=== PATIENT | female | born 1945 | race Caucasian/White ===

== ENCOUNTER → 2017-02-05 | Outpatient (CLI) | payer MEDICARE ==
[2017-02-05 08:42] LABS: BASOPHILS % (AUTO) 2 % (0-2); EOSINOPHILS # (AUTO) 0.2 10^3uL; EOSINOPHILS % (AUTO) 3 % (0-4); LYMPHOCYTES # (AUTO) 1.4 X10^3; MEAN CORPUSCULAR HEMOGLOBIN 31.2 PG (26.0-34.0); MEAN CORPUSCULAR HGB CONC 33.9 g/dL (31.0-37.0); MEAN CORPUSCULAR VOLUME 92 FL (80-100); MEAN PLATELET VOLUME 9.2 FL (6.0-9.5); MONOCYTES # (AUTO) 0.5 X10^3; MONOCYTES % (AUTO) 10 % (3-11); NEUTROPHILS # (AUTO) 2.6 X10^3; NEUTROPHILS % (AUTO) 56 % (51-67); PLATELET COUNT 336 10^3uL (150-450); WHITE BLOOD COUNT 4.66 10^3uL (4.0-11.0)
[2017-02-05 08:45] LABS: BILIRUBIN,URINE Negative (Negative); CLARITY,URINE Clear; COLOR,URINE Yellow; GLUCOSE, URINE (UA) Negative (Negative); LEUKOCYTE ESTERASE ,URINE Negative (Negative); UROBILINOGEN,URINE 0.2 mg/dL (0.2-1.0)
[2017-02-05 09:28] LABS: ALBUMIN 4.2 g/dL (3.4-5.0); ANION GAP 14.5 MEQ/L (3-15); CALCULATED IONIZED CALCIUM 4.4 mg/dL (3.8-4.6); TOTAL PROTEIN 6.9 g/dL (6.4-8.5)
== END ==
LOC: LAB 08:27
PROVIDERS: ATTEND Family Medicine
DX: J20.2 Acute bronchitis due to streptococcus (principal); I49.8 Other specified cardiac arrhythmias; R79.89 Other specified abnormal findings of blood chemistry; E78.2 Mixed hyperlipidemia; D50.8 Other iron deficiency anemias; N39.0 Urinary tract infection, site not specified; E03.4 Atrophy of thyroid (acquired); M81.0 Age-related osteoporosis without current pathological fracture
CPT/HCPCS: 36415; 71020; 80053; 80061; 81003; 82306; 82728; 84436; 84443; 85025; 93005

== ENCOUNTER 2017-03-11 07:40 | Day surgery (SDC) | payer MEDICARE ==
[~2017-03-11] VITALS: Ht 170.2 cm; Wt 63.0 kg
[~2017-03-11 07:40] MED LIST: APIX2.5T2 PO; CELE200C PO; LACTATED RINGERS 1,000 ML IV SCH; LEVO0.5P2 PO; LEVO50TA PO; LVT.05T PO; SERT100T PO; SODIUM CHLORIDE FLUSH 3 ML SYR IV PRN; TRAZ150T72 PO
--- OUTSIDE RECORDS SUMMARY | 2017-03-11 07:46 | XMS REPORT | Continuity of Care Document ---
Author Author [facility] Organization [facility] Address Unknown Phone Unavailable Allergies Active Description Code Type Severity Reaction Onset Reported/Identified Relationship to Patient Clinical Status Yes meloxicam [id number] Drug Allergy Unknown Anaphylaxis 12/01/2012 Yes morphine [id number] Drug Allergy Unknown Rash 12/01/2012 Yes nabumetone [id number] Drug Allergy Unknown Hives 12/01/2012 Yes Mobic 33052 Drug severe Anaphylaxis 12/25/2013 Yes Lortab 7006 Drug mild to moderate Unknown 12/25/2013 Yes morphine 1545 Ingredient mild to moderate Unknown 12/25/2013 Yes Relafen 6740 Drug mild to moderate Unknown 12/25/2013 Medications Problems Date Dx Coded Attending Type Code Diagnosis Diagnosed By 12/01/2012 Ot 724.02 12/01/2012 Ot 724.2 12/01/2012 Ot 726.5 02/09/2013 Ot 724.4 08/13/2013 PARAG RODRIGUEZ MD Ot 780.2 08/13/2013 PARAG RODRIGUEZ MD P Ot 847.0 08/13/2013 PARAG RODRIGUEZ MD P Ot 891.0 08/13/2013 PARAG RODRIGUEZ MD Ot 924.8 08/13/2013 PARAG RODRIGUEZ MD P Ot E849.8 08/13/2013 PARAG RODRIGUEZ MD P Ot E888.8 10/23/2013 Dewayne Lugo Ot 724.00 09/18/2014 JASON PAREDES, LAZARO Fowler Ot 724.6 11/08/2014 Ot 453.40 11/08/2014 Ot 715.95 11/08/2014 Ot 727.51 11/08/2014 Ot 786.2 11/08/2014 Ot 244.9 11/08/2014 Ot 272.0 11/08/2014 Ot 274.9 11/08/2014 Ot 285.9 11/08/2014 Ot 599.0 11/08/2014 Ot 710.2 11/08/2014 Ot 719.40 11/08/2014 Ot 724.5 11/08/2014 Ot 733.00 11/08/2014 Ot 790.6 11/08/2014 Ot 355.8 11/08/2014 Ot 518.89 11/08/2014 Ot 715.89 11/08/2014 Ot 721.3 11/08/2014 Ot 724.4 11/08/2014 Ot 518.89 11/08/2014 Ot 724.4 11/08/2014 Ot 719.45 11/08/2014 Ot 720.2 11/08/2014 Ot V76.12 11/08/2014 Ot 285.9 11/08/2014 Ot 427.9 11/08/2014 Ot 599.0 11/08/2014 Ot 790.6 11/08/2014 Ot V72.83 11/08/2014 JASON PAREDES, LAZARO Fowler Ot 729.5 11/08/2014 Dewayne Lugo Ot 724.02 11/08/2014 Dewayne Lugo Ot 724.00 11/08/2014 JASON PAREDES, LAZARO Fowler Ot 726.5 11/08/2014 JASON PAREDES, LAZARO Fowler Ot 244.9 11/08/2014 JASON PAREDES, LAZARO Fowler Ot 272.0 11/08/2014 JASON PAREDES, LAZARO Fowler Ot 733.00 11/08/2014 JASON PAREDES, LAZARO Fowler Ot 786.2 11/08/2014 JASON PAREDES, LAZARO Fowler Ot 793.19 11/08/2014 Rakel, Jey Ot 719.46 11/08/2014 Rakel, Jey Ot 996.77 11/08/2014 Rakel, Jey Ot E849.9 11/08/2014 Rakel, Jey Ot E878.1 11/08/2014 Ot 250.00 11/08/2014 Ot 285.9 11/08/2014 Ot 427.9 11/08/2014 Ot 459.0 11/08/2014 Ot 599.0 11/08/2014 Ot 786.2 11/08/2014 Ot 790.6 11/08/2014 CONSTANCE ASHLEY DO Ot 720.2 11/08/2014 CONSTANCE ASHLEY DO Ot V45.89 11/28/2014 [facility] DO, CONSTANCE W Ot 720.2 11/28/2014 [facility] DO, CONSTANCE W Ot V45.89 12/03/2014 [facility] DO, CONSTANCE Flynn Ot 720.2 12/03/2014 [facility] DO, CONSTANCE W Ot V45.89 12/21/2014 JASON PAREDES, LAZARO Fowler Ot 733.90 12/21/2014 JASON PAREDES, LAZARO Fowler Ot V76.12 01/02/2015 JASON PAREDES, LAZARO Fowler Ot 733.90 01/02/2015 JASON PAREDES, LAZARO R Ot V76.12 03/06/2015 [facility], CONSTANCE W Ot 272.0 03/06/2015 [facility], CONSTANCE W Ot 401.9 03/06/2015 [facility], CONSTANCE Flynn Ot 720.2 03/06/2015 [facility], CONSTANCE W Ot 724.02 03/06/2015 [facility], CONSTANCE W Ot 733.00 03/14/2015 [facility], CONSTANCE Flynn Ot 272.0 03/14/2015 [facility], CONSTANCE Flynn Ot 401.9 03/14/2015 [facility], CONSTANCE Flynn Ot 720.2 03/14/2015 [facility], CONSTANCE W Ot 724.02 03/14/2015 [facility], CONSTANCE W Ot 733.00 03/27/2015 Dewayne Lugo Ot 724.00 03/27/2015 JASON PAREDES, LAZARO Fowler Ot 726.5 03/27/2015 JASON PAREDES, LAZARO Fowler Ot 244.9 03/27/2015 JASON PAREDES, LAZARO Fowler Ot 272.0 03/27/2015 JASON PAREDES, LAZARO Fowler Ot 733.00 03/27/2015 JASON PAREDES, LAZARO Fowler Ot 786.2 03/27/2015 JASON PAREDES, LAZARO Fowler Ot 793.19 03/27/2015 Rakel, Jey Ot 719.46 03/27/2015 Rakel, Jey Ot 996.77 03/27/2015 Rakel, Jey Ot E849.9 03/27/2015 Rakel, Jey Ot E878.1 03/27/2015 Ot 250.00 03/27/2015 Ot 285.9 03/27/2015 Ot 427.9 03/27/2015 Ot 459.0 03/27/2015 Ot 599.0 03/27/2015 Ot 786.2 03/27/2015 Ot 790.6 03/27/2015 [facility] DO, CONSTANCE Flynn Ot 720.2 03/27/2015 [facility], CONSTANCE Flynn Ot V45.89 03/27/2015 [facility], CONSTANCE Flynn Ot 272.0 03/27/2015 [facility], CONSTANCE Flynn Ot 401.9 03/27/2015 [facility], CONSTANCE Flynn Ot 720.2 03/27/2015 [facility], CONSTANCE Flynn Ot 724.02 03/27/2015 [facility], CONSTANCE Flynn Ot 733.00 03/27/2015 JASON PAREDES, LAZARO R Ot 733.90 03/27/2015 JASON PAREDES, LAZARO R Ot V76.12 04/18/2015 JASON PAREDES, LAZARO R Ot 285.9 04/18/2015 JASON PAREDES, LAZARO R Ot 427.9 04/18/2015 JASON PAREDES, LAZARO R Ot 788.69 04/18/2015 JASON PAREDES, LAZARO R Ot 790.6 04/26/2015 JASON PAREDES, LAZARO R Ot 285.9 04/26/2015 JASON PAREDES, LAZARO R Ot 427.9 04/26/2015 JASON PAREDES, LAZARO R Ot 788.69 04/26/2015 JASON PAREDES, LAZARO R Ot 790.6 07/02/2015 JASON PAREDES, LAZARO R Ot 453.40 07/02/2015 JASON PAREDES, LAZARO R Ot 727.51 07/12/2015 JASON PAERDES, LAZARO R Ot 453.40 07/12/2015 JASON PAREDES, LAZARO R Ot 727.51 07/18/2015 JASON PAREDES, LAZARO R Ot 453.40 07/18/2015 JASON PAREDES, LAZARO R Ot 727.51 07/24/2015 Ot 285.9 07/24/2015 Ot 427.9 07/24/2015 Ot 599.0 07/24/2015 Ot 790.6 08/08/2015 Ot 285.9 08/08/2015 Ot 427.9 08/08/2015 Ot 599.0 08/08/2015 Ot 790.6 08/14/2015 Ot 285.9 08/14/2015 Ot 427.9 08/14/2015 Ot 599.0 08/14/2015 Ot 790.6 10/04/2015 JASON PAREDES, LAZARO Fowler Ot I82.402 10/22/2015 JASON PAREDES, LAZARO Fowler Ot I82.402 10/31/2015 JAOSN PAREDES, LAZARO Fowler Ot I82.402 11/15/2015 Parish, Dewayne Fowler Ot M46.1 11/21/2015 Dewayne Lugo Ot M46.1 12/01/2015 JASON PAREDES, LAZARO Fowler Ot I82.402 12/02/2015 Dewayne Lugo Ot M54.5 12/04/2015 Parish, Dewayne Fowler Ot M54.5 12/20/2015 JASON PAREDES, LAZARO Fowler Ot I82.432 12/20/2015 JASON PAREDES, LAZARO Fowler Ot M19.042 12/20/2015 JASON PAREDES, LAZARO Fowler Ot M19.072 12/30/2015 JASON PAREDES, LAZARO Fowler Ot I82.432 12/30/2015 JASON PAREDES, LAZARO Fowler Ot M19.042 12/30/2015 JASON PAREDES, LAZARO Fowler Ot M19.072 01/03/2016 Ot 285.9 01/03/2016 Ot 427.9 01/03/2016 Ot 599.0 01/03/2016 Ot 790.6 01/08/2016 JASON PAREDES, LAZARO Fowler Ot I82.432 01/08/2016 JASON PAREDES, LAZARO Fowler Ot M19.042 01/08/2016 JASON PAREDES, LAZARO Fowler Ot M19.072 01/10/2016 Ot M25.562 01/21/2016 Dewayne Lugo Ot M54.5 01/21/2016 Dewayne Lugo Ot M46.1 01/21/2016 JASON PAREDES, LAZARO Fowler Ot I82.402 01/21/2016 JASON PAREDES, LAZARO Fowler Ot I82.432 01/21/2016 JASON PAREDES, LAZARO Fowler Ot M19.042 01/21/2016 JASON PAREDES, LAZARO Fowler Ot M19.072 01/21/2016 Ot M25.562 01/21/2016 JASON APREDES, LAZARO Fowler Ot D50.8 01/21/2016 JASON PAREDES, LAZARO Fowler Ot E03.4 01/21/2016 Ot M25.562 02/05/2016 DebbieAl N81.11 Cystocele, Midline 02/14/2016 JASON PAREDES, LAZARO Fowler Ot D50.8 02/14/2016 JASON PAREDES, LAZARO Fowler Ot E03.4 03/04/2016 JASON PAREDES, LAZARO Fowler Ot D50.8 03/04/2016 JASON PAREDES, LAZARO Fowler Ot E78.0 03/04/2016 JASON PAREDES, LAZARO Fowler Ot R79.89 03/06/2016 JASON PAREDES, LAZARO Fowler Ot D50.8 03/06/2016 JASON PAREDES, LAZARO Fowler Ot E03.4 03/06/2016 JASON PAREDES, LAZARO Fowler Ot E78.0 03/06/2016 JASON PAREDES, LAZARO Fowler Ot M81.0 03/06/2016 JASON PAREDES, LAZARO Fowler Ot N39.0 03/06/2016 JASON PAREDES, LAZARO Fowler Ot R79.89 03/10/2016 JASON PAREDES, LAZARO Fowler Ot D50.8 03/10/2016 JASON PAREDES, LAZARO Fowler Ot E03.4 03/11/2016 JASON PAREDES, LAZARO Fowler Ot Z12.31 03/11/2016 JASON PAREDES, LAZARO Fowler Ot Z12.31 03/18/2016 JASON PAREDES, LAZARO Fowler Ot Z12.31 ENCNTR SCREEN MAMMOGRAM FOR MALIGNANT NE 03/19/2016 JASON PAREDES, LAZARO Fowler Ot D50.8 OTHER IRON DEFICIENCY ANEMIAS 03/19/2016 JASON PAREDES, LAZARO Fowler Ot E03.4 ATROPHY OF THYROID (ACQUIRED) 03/19/2016 JASON PAREDES, LAZARO Fowler Ot E78.0 PURE HYPERCHOLESTEROLEMIA 03/19/2016 JASON PAREDES, LAZARO Fowler Ot M81.0 AGE-RELATED OSTEOPOROSIS W/O CURRENT PAT 03/19/2016 LARZALAZARO NAYAK MD, Ot N39.0 URINARY TRACT INFECTION, SITE NOT SPECIF 03/19/2016 LAZARO GOMEZ MD, Ot R79.89 OTHER SPECIFIED ABNORMAL FINDINGS OF BLO 03/20/2016 LAZARO GOMEZ MD, Ot 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 03/20/2016 LAZARO GOMEZ MD, Ot Z12.31 ENCNTR SCREEN MAMMOGRAM FOR MALIGNANT NE 03/20/2016 LAZARO GOMEZ MD, Ot 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 03/24/2016 LAZARO GOMEZ MD, Ot Z12.31 ENCNTR SCREEN MAMMOGRAM FOR MALIGNANT NE 03/24/2016 LAZARO GOMEZ MD, Ot D50.8 OTHER IRON DEFICIENCY ANEMIAS 03/24/2016 LAZARO GOMEZ MD, Ot E03.4 ATROPHY OF THYROID (ACQUIRED) 03/24/2016 LAZARO GOMEZ MD, Ot E78.0 PURE HYPERCHOLESTEROLEMIA 03/24/2016 LAZARO GOMEZ MD, Ot M81.0 AGE-RELATED OSTEOPOROSIS W/O CURRENT PAT 03/24/2016 LAZARO GOMEZ MD, Ot N39.0 URINARY TRACT INFECTION, SITE NOT SPECIF 03/24/2016 LAZARO GOMEZ MD, Ot R79.89 OTHER SPECIFIED ABNORMAL FINDINGS OF BLO 03/24/2016 LAZARO GOMEZ MD, Ot 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 04/02/2016 LAZARO GOMEZ MD, Ot 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 04/03/2016 LAZARO GOEMZ MD, Ot Z12.31 ENCNTR SCREEN MAMMOGRAM FOR MALIGNANT NE 04/08/2016 LAZARO GOMEZ MD, Ot M54.16 RADICULOPATHY, LUMBAR REGION 04/09/2016 LAZARO GOMEZ MD, Ot 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 04/16/2016 LAZARO GOMEZ MD, Ot 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 04/28/2016 LAZARO GOMEZ MD, Ot M54.16 RADICULOPATHY, LUMBAR REGION 04/30/2016 LAZARO GOMEZ MD, Ot M54.16 RADICULOPATHY, LUMBAR REGION 05/05/2016 LAZARO GOEMZ MD, Ot M53.3 SACROCOCCYGEAL DISORDERS, NOT ELSEWHERE 05/12/2016 LAZARO GOMEZ MD Ot 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 05/21/2016 LAZARO GOMEZ MD, Ot M53.3 SACROCOCCYGEAL DISORDERS, NOT ELSEWHERE 05/27/2016 LAZARO GOMEZ MD, Ot M53.3 SACROCOCCYGEAL DISORDERS, NOT ELSEWHERE 05/28/2016 LAZARO GOMEZ MD, Ot M53.3 SACROCOCCYGEAL DISORDERS, NOT ELSEWHERE 07/14/2016 LAZARO GOMEZ MD Ot R79.89 OTHER SPECIFIED ABNORMAL FINDINGS OF BLO 07/14/2016 LAZARO GOMEZ MD Ot R79.89 OTHER SPECIFIED ABNORMAL FINDINGS OF BLO 07/17/2016 LAZARO GOMEZ MD Ot D50.8 OTHER IRON DEFICIENCY ANEMIAS 07/17/2016 LAZARO OGMEZ MD Ot I49.8 OTHER SPECIFIED CARDIAC ARRHYTHMIAS 07/17/2016 LAZARO GOMEZ MD Ot N39.0 URINARY TRACT INFECTION, SITE NOT SPECIF 07/17/2016 LAZARO GOMEZ MD Ot R06.00 DYSPNEA, UNSPECIFIED 07/17/2016 LAZARO GOMEZ MD Ot R79.89 OTHER SPECIFIED ABNORMAL FINDINGS OF BLO 07/20/2016 LAZARO GOMEZ MD Ot D50.8 OTHER IRON DEFICIENCY ANEMIAS 07/20/2016 LAZARO GOMEZ MD Ot I49.8 OTHER SPECIFIED CARDIAC ARRHYTHMIAS 07/20/2016 LAZARO GOMEZ MD Ot N39.0 URINARY TRACT INFECTION, SITE NOT SPECIF 07/20/2016 LAZARO GOMEZ MD Ot R06.00 DYSPNEA, UNSPECIFIED 07/20/2016 LAZARO GOMEZ MD Ot R79.89 OTHER SPECIFIED ABNORMAL FINDINGS OF BLO 07/28/2016 LAZARO GOMEZ MD Ot D50.8 OTHER IRON DEFICIENCY ANEMIAS 07/28/2016 LAZARO GOMEZ MD Ot I49.8 OTHER SPECIFIED CARDIAC ARRHYTHMIAS 07/28/2016 LAZARO GOMEZ MD Ot N39.0 URINARY TRACT INFECTION, SITE NOT SPECIF 07/28/2016 LAZARO GOMEZ MD Ot R06.00 DYSPNEA, UNSPECIFIED 07/28/2016 LAZARO GOMEZ MD Ot R79.89 OTHER SPECIFIED ABNORMAL FINDINGS OF BLO 08/11/2016 LAZARO GOMEZ MD Ot I82.432 ACUTE EMBOLISM AND THROMBOSIS OF LEFT PO 08/11/2016 LAZARO GOMEZ MD Ot I82.432 ACUTE EMBOLISM AND THROMBOSIS OF LEFT PO 08/13/2016 LAZARO GOMEZ MD Ot I82.432 ACUTE EMBOLISM AND THROMBOSIS OF LEFT PO 08/14/2016 LAZARO GOMEZ MD Ot D50.8 OTHER IRON DEFICIENCY ANEMIAS 08/14/2016 LAZARO GOMEZ MD Ot I49.8 OTHER SPECIFIED CARDIAC ARRHYTHMIAS 08/14/2016 LAZARO GOMEZ MD Ot N39.0 URINARY TRACT INFECTION, SITE NOT SPECIF 08/14/2016 LAZARO GOMEZ MD Ot R06.00 DYSPNEA, UNSPECIFIED 08/14/2016 LAZARO GOMEZ MD Ot R79.89 OTHER SPECIFIED ABNORMAL FINDINGS OF BLO 08/17/2016 LAZARO GOMEZ MD Ot I82.432 ACUTE EMBOLISM AND THROMBOSIS OF LEFT PO 08/25/2016 LAZARO GOMEZ MD Ot D50.8 OTHER IRON DEFICIENCY ANEMIAS 08/25/2016 LAZARO GOMEZ MD Ot I49.8 OTHER SPECIFIED CARDIAC ARRHYTHMIAS 08/25/2016 LAZARO GOMEZ MD, Ot N39.0 URINARY TRACT INFECTION, SITE NOT SPECIF 08/25/2016 LAZARO GOMEZ MD Ot R06.00 DYSPNEA, UNSPECIFIED 08/25/2016 LAZARO GOMEZ MD Ot R79.89 OTHER SPECIFIED ABNORMAL FINDINGS OF BLO 09/04/2016 LAZARO GOMEZ MD Ot I82.432 ACUTE EMBOLISM AND THROMBOSIS OF LEFT PO 09/10/2016 LAZARO GOMEZ MD Ot I82.432 ACUTE EMBOLISM AND THROMBOSIS OF LEFT PO 09/16/2016 LAZARO GOMEZ MD Ot I82.432 ACUTE EMBOLISM AND THROMBOSIS OF LEFT PO 09/23/2016 LAZARO GOMEZ MD Ot E03.4 ATROPHY OF THYROID (ACQUIRED) 09/23/2016 LAZARO GOMEZ MD Ot E03.4 ATROPHY OF THYROID (ACQUIRED) 09/23/2016 LAZARO GOMEZ MD Ot E03.4 ATROPHY OF THYROID (ACQUIRED) 09/24/2016 LAZARO GOMEZ MD Ot E03.4 ATROPHY OF THYROID (ACQUIRED) 09/25/2016 LAZARO GOMEZ MD Ot E03.4 ATROPHY OF THYROID (ACQUIRED) 10/13/2016 LAZARO GOMEZ MD Ot E03.4 ATROPHY OF THYROID (ACQUIRED) 10/28/2016 LAZARO GOMEZ MD Ot E03.4 ATROPHY OF THYROID (ACQUIRED) 10/28/2016 LAZARO GOMEZ MD Ot E03.4 ATROPHY OF THYROID (ACQUIRED) 10/29/2016 LAZARO GOMEZ MD Ot E03.4 ATROPHY OF THYROID (ACQUIRED) 10/29/2016 LAZARO GOMEZ MD Ot E03.4 ATROPHY OF THYROID (ACQUIRED) 10/29/2016 LAZARO GOMEZ MD Ot I82.432 ACUTE EMBOLISM AND THROMBOSIS OF LEFT PO 10/29/2016 LAZARO GOMEZ MD Ot M19.042 PRIMARY OSTEOARTHRITIS, LEFT HAND 10/29/2016 LAZARO GOMEZ MD Ot M19.072 PRIMARY OSTEOARTHRITIS, LEFT ANKLE AND F 10/29/2016 Ot M25.562 PAIN IN LEFT KNEE 11/03/2016 LAZARO GOMEZ MD Ot E03.4 ATROPHY OF THYROID (ACQUIRED) 11/20/2016 LAZARO GOMEZ MD Ot E03.4 ATROPHY OF THYROID (ACQUIRED) 02/05/2017 LAZARO GOMEZ MD Ot E78.2 MIXED HYPERLIPIDEMIA 02/05/2017 LAZARO GOMEZ MD Ot R79.89 OTHER SPECIFIED ABNORMAL FINDINGS OF BLO 02/05/2017 LAZARO GOMEZ MD Ot E78.2 MIXED HYPERLIPIDEMIA 02/05/2017 LAZARO GOMEZ MD Ot R79.89 OTHER SPECIFIED ABNORMAL FINDINGS OF BLO 02/05/2017 LAZARO GOMEZ MD Ot E78.2 MIXED HYPERLIPIDEMIA 02/05/2017 LAZARO GOMEZ MD Ot R79.89 OTHER SPECIFIED ABNORMAL FINDINGS OF BLO 02/06/2017 LAZARO GOMEZ MD Ot E78.2 MIXED HYPERLIPIDEMIA 02/06/2017 LAZARO GOMEZ MD Ot R79.89 OTHER SPECIFIED ABNORMAL FINDINGS OF BLO 02/10/2017 LAZARO GOMEZ MD Ot D50.8 OTHER IRON DEFICIENCY ANEMIAS 02/10/2017 LAZARO GOMEZ MD Ot E03.4 ATROPHY OF THYROID (ACQUIRED) 02/10/2017 LAZARO GOMEZ MD, Ot E78.2 MIXED HYPERLIPIDEMIA 02/10/2017 LAZARO GOMEZ MD Ot I49.8 OTHER SPECIFIED CARDIAC ARRHYTHMIAS 02/10/2017 LAZARO GOMEZ MD Ot J20.2 ACUTE BRONCHITIS DUE TO STREPTOCOCCUS 02/10/2017 LAZARO GOMEZ MD, Ot M81.0 AGE-RELATED OSTEOPOROSIS W/O CURRENT PAT 02/10/2017 LAZARO GOMEZ MD, Ot N39.0 URINARY TRACT INFECTION, SITE NOT SPECIF 02/10/2017 LAZARO GOMEZ MD, Ot R79.89 OTHER SPECIFIED ABNORMAL FINDINGS OF BLO 02/12/2017 LAZARO GOMEZ MD, Ot D50.8 OTHER IRON DEFICIENCY ANEMIAS 02/12/2017 LAZARO GOMEZ MD Ot E03.4 ATROPHY OF THYROID (ACQUIRED) 02/12/2017 LAZARO GOMEZ MD, Ot E78.2 MIXED HYPERLIPIDEMIA 02/12/2017 LAZARO GOMEZ MD, Ot I49.8 OTHER SPECIFIED CARDIAC ARRHYTHMIAS 02/12/2017 LAZARO GOMEZ MD, Ot J20.2 ACUTE BRONCHITIS DUE TO STREPTOCOCCUS 02/12/2017 LAZARO GOMEZ MD, Ot M81.0 AGE-RELATED OSTEOPOROSIS W/O CURRENT PAT 02/12/2017 LAZARO GOMEZ MD, Ot N39.0 URINARY TRACT INFECTION, SITE NOT SPECIF 02/12/2017 LAZARO GOMEZ MD Ot R79.89 OTHER SPECIFIED ABNORMAL FINDINGS OF BLO 03/02/2017 LAZARO GOMEZ MD, Ot D50.8 OTHER IRON DEFICIENCY ANEMIAS 03/02/2017 LAZARO GOMEZ MD Ot E03.4 ATROPHY OF THYROID (ACQUIRED) 03/02/2017 LAZARO GOMEZ MD, Ot E78.2 MIXED HYPERLIPIDEMIA 03/02/2017 LAZARO GOMEZ MD Ot I49.8 OTHER SPECIFIED CARDIAC ARRHYTHMIAS 03/02/2017 LAZARO GOMEZ MD Ot J20.2 ACUTE BRONCHITIS DUE TO STREPTOCOCCUS 03/02/2017 LAZARO GOMEZ MD Ot M81.0 AGE-RELATED OSTEOPOROSIS W/O CURRENT PAT 03/02/2017 LAZARO GOMEZ MD, Ot N39.0 URINARY TRACT INFECTION, SITE NOT SPECIF 03/02/2017 LAZARO GOMEZ MD, Ot R79.89 OTHER SPECIFIED ABNORMAL FINDINGS OF BLO 03/03/2017 LAZARO GOMEZ MD, Ot D50.8 OTHER IRON DEFICIENCY ANEMIAS 03/03/2017 LAZARO GOMEZ MD, Ot E03.4 ATROPHY OF THYROID (ACQUIRED) 03/03/2017 LAZARO GOMEZ MD, Ot E78.2 MIXED HYPERLIPIDEMIA 03/03/2017 LAZARO GOMEZ MD, Ot I49.8 OTHER SPECIFIED CARDIAC ARRHYTHMIAS 03/03/2017 LAZARO GOMEZ MD, Ot J20.2 ACUTE BRONCHITIS DUE TO STREPTOCOCCUS 03/03/2017 LAZARO GOMEZ MD, Ot M81.0 AGE-RELATED OSTEOPOROSIS W/O CURRENT PAT 03/03/2017 LAZARO GOMEZ MD, Ot N39.0 URINARY TRACT INFECTION, SITE NOT SPECIF 03/03/2017 LAZARO GOMEZ MD, Ot R79.89 OTHER SPECIFIED ABNORMAL FINDINGS OF BLO Procedures Code Description Performed By Performed On [id number] 03/11/2016 Results Test Result Range Complete blood count (CBC) with automated white blood cell (WBC) differential - 07/14/16 14:27 Blood automated leukocyte count 5.99 4.0 -11.0 Erythrocytes 4.09 4.00-5.00 12.0-16.0;g/dL 12.9 12.0-15.5 Hematocrit 38.50 35.00-45.00 Automated erythrocyte mean corpuscular volume 94 80-100 Mean corpuscular hemoglobin (MCH) determination 31.5 26.0-34.0 Automated erythrocyte mean corpuscular hemoglobin concentration measurement ( mass/volume) 33.5 31.0-37.0 Erythrocyte distribution width 12.9 11.8 -15.6 Automated blood platelet count 334 150- 450 Automated blood platelet mean volume measurement 9.2 6.0-9.5 Automated neutrophil percentage 56 51- 67 Lymphocytes/100 leukocytes 32 20-46 Automated monocyte percentage 9 3-11 Eosinophil count auto 2 0-4 Automated basophil percentage 1 0-2 Automated blood neutrophil count 3.4 Blood lymphocytes count (number/volume) 1.9 Automated blood monocyte count 0.5 Blood absolute eosinophil count 0.1 Basophils 0.1 UA CULTURE IF INDICATED* - 07/14/16 14:27 COLLECTION METHOD CLEAN CATCH Color of urine by auto Yellow Urine appearance determination Clear Urine pH measurement by automated test strip 6.0 5.0 - 8.0 Specific gravity of urine by automated test strip 1.015 1.005-1.030 Urine protein measurement by test strip (mass/volume) Negative Negative Urine glucose detection by automated test strip Negative Negative Urine erythrocytes count by automated test strip (number/volume) Negative Negative Urine ketones detection by automated test strip Negative Negative Urine nitrite detection by test strip Negative Negative Urine total bilirubin detection by automated test strip Negative Negative Urine urobilinogen measurement by automated test strip (mass/volume) 0.2 0.2-1.0 Urine leukocyte esterase detection by dipstick Negative Negative Comprehensive metabolic panel - 07/14/16 14:27 Sodium measurement 94 70-110 Carbon dioxide measurement 26 22-29 Serum or plasma anion gap 19.1 3-15 BLOOD UREA NITROGEN 12 7-18 CREATININE SERUM 0.81 0.6-1.2 Brucella species antibody panel (IgG, IgM) 15 10-20 Estimated glomerular filtration rate (GFR) 85.1 Estimated glomerular filtration rate (GFR) non- 70.3 OSMOLALITY,CALCULATED 277 280-300 CALCIUM 10.1 8.8-10.8 Calculated ionized calcium measurement 4.5 3.8-4.6 BILIRUBIN,TOTAL 0.5 0.1-1.0 Serum or plasma alkaline phosphatase measurement 101 38-126 ASPARTATE AMINO TRANSFERASE 30 15-37 ALANINE AMINOTRANSFERASE 34 30-65 Serum or plasma total protein measurement 7.0 6.4-8.5 Serum or plasma albumin measurement 4.6 3.4-5.0 Serum or plasma albumin/globulin mass ratio 1.916 1.1-1.8 THYROID STIMULATING HORMONE* - 09/23/16 10:17 THYROID STIMULATING HORMONE 0.20 0.46- 4.68 Thyroxine (T4) measurement - 09/23/16 10:17 Serum or plasma thyroxine (T4) measurement (mass/volume) 6.3 4.8-11.7 THYROID STIMULATING HORMONE* - 10/28/16 10:52 THYROID STIMULATING HORMONE 0.92 0.46- 4.68 Thyroxine (T4) measurement - 10/28/16 10:52 Serum or plasma thyroxine (T4) measurement (mass/volume) 6.7 4.8-11.7 Complete blood count (CBC) with automated white blood cell (WBC) differential - 02/05/17 08:35 Blood automated leukocyte count 4.66 4.0 -11.0 Erythrocytes 4.17 4.00-5.00 12.0-16.0;g/dL 13.0 12.0-15.5 Hematocrit 38.40 35.00-45.00 Automated erythrocyte mean corpuscular volume 92 80-100 Mean corpuscular hemoglobin (MCH) determination 31.2 26.0-34.0 Automated erythrocyte mean corpuscular hemoglobin concentration measurement ( mass/volume) 33.9 31.0-37.0 Erythrocyte distribution width 12.7 11.8 -15.6 Automated blood platelet count 336 150- 450 Automated blood platelet mean volume measurement 9.2 6.0-9.5 Automated neutrophil percentage 56 51- 67 Lymphocytes/100 leukocytes 29 20-46 Automated monocyte percentage 10 3-11 Eosinophil count auto 3 0-4 Automated basophil percentage 2 0-2 Automated blood neutrophil count 2.6 Blood lymphocytes count (number/volume) 1.4 Automated blood monocyte count 0.5 Blood absolute eosinophil count 0.2 Basophils 0.1 UA CULTURE IF INDICATED* - 02/05/17 08:35 COLLECTION METHOD CLEAN CATCH Color of urine by auto Yellow Urine appearance determination Clear Urine pH measurement by automated test strip 7.0 5.0 - 8.0 Specific gravity of urine by automated test strip 1.020 1.005-1.030 Urine protein measurement by test strip (mass/volume) Negative Negative Urine glucose detection by automated test strip Negative Negative Urine erythrocytes count by automated test strip (number/volume) Negative Negative Urine ketones detection by automated test strip Negative Negative Urine nitrite detection by test strip Negative Negative Urine total bilirubin detection by automated test strip Negative Negative Urine urobilinogen measurement by automated test strip (mass/volume) 0.2 0.2-1.0 Urine leukocyte esterase detection by dipstick Negative Negative Comprehensive metabolic panel - 02/05/17 08:35 Sodium measurement 90 70-110 CARBON DIOXIDE 27 22-29 Serum or plasma anion gap 14.5 3-15 BLOOD UREA NITROGEN 9 7-18 CREATININE SERUM 0.76 0.6-1.2 Brucella species antibody panel (IgG, IgM) 12 10-20 Estimated glomerular filtration rate (GFR) 91.3 Estimated glomerular filtration rate (GFR) non- 75.5 OSMOLALITY,CALCULATED 276 280-300 CALCIUM 9.7 8.8-10.8 Calculated ionized calcium measurement 4.4 3.8-4.6 BILIRUBIN,TOTAL 0.7 0.1-1.0 Serum or plasma alkaline phosphatase measurement 109 38-126 ASPARTATE AMINO TRANSFERASE 25 15-37 ALANINE AMINOTRANSFERASE 32 30-65 Serum or plasma total protein measurement 6.9 6.4-8.5 Serum or plasma albumin measurement 4.2 3.4-5.0 Serum or plasma albumin/globulin mass ratio 1.555 1.1-1.8 Vitamin D+Metabolites - 02/05/17 08:35 Vitamin D+Metabolites 64.5 30.0-100.0 THYROID STIMULATING HORMONE* - 02/05/17 08:35 THYROID STIMULATING HORMONE 2.04 0.46- 4.68 Thyroxine (T4) measurement - 02/05/17 08:35 Serum or plasma thyroxine (T4) measurement (mass/volume) 6.6 4.8-11.7 LIPID PANEL - 02/05/17 08:35 Cholesterol 194 50-200 HDL Cholesterol 88 40-60 Triglycerides 110 10-150 LDL CHOLESTEROL 84 50-130 VLDL Cholesterol, calc 22 4.00-40.00 Cholesterol.total/Cholesterol.in HDL 2.2 0.0-5.0 FERRITIN - 02/05/17 08:35 Serum or plasma ferritin measurement (mass/volume) 35 5-204 Encounters ACCT No. Visit Date/Time Discharge Status Pt. Type Provider Facility Loc./Unit Complaint [id number] 09/02/2015 13:51:00 2014 13:51:00 [facility], [facility] & [facility]ANGO
[2017-03-11 07:49] VITALS: BP 144/80
[2017-03-11] MEDS ORDERED: MIDAZOLAM 2 MG/2 ML (VERSED) VIAL ONE (08:27)
[2017-03-11] MEDS ORDERED: ALFENTANIL 500 MCG/ML (ALFENTA) 5 ML AMP IV ONE (08:27)
[2017-03-11] MEDS ORDERED: PROPOFOL 20 ML IV ONE (08:27)
[2017-03-11 09:42] VITALS: BP 133/54
[2017-03-11 10:13] VITALS: BP 147/68
[2017-03-11 10:34] LABS: MEAN CORPUSCULAR HEMOGLOBIN 30.8 PG (26.0-34.0); MEAN CORPUSCULAR HGB CONC 32.9 g/dL (31.0-37.0); MEAN PLATELET VOLUME 9.6 FL (6.0-9.5); WHITE BLOOD COUNT 7.12 10^3uL (4.0-11.0)
--- NOTE | 2017-03-11 11:19 | OPERATIVE REPORT ---
DATE OF OPERATION: 03/11/2017 PRE-OPERATIVE DIAGNOSIS: 1. Screening colonoscopy 2. Family history of colon cancer. POST-OPERATIVE DIAGNOSIS: 1. Colon and rectal polyps. 2. Sigmoid diverticulosis. OPERATIVE PROCEDURE: Total colonoscopy with polypectomies (biopsy forceps and endoscopic mucosal resection) SURGEON: Scout Damon MD ANESTHESIA: Monitored anesthesia care FINDINGS: 1. The bowel prep was good. 2. There were 3 small polyps noted, 1 which was slightly larger in the rectum and 2 smaller ones in the descending colon. The colon polyps were removed with the biopsy forceps and the rectal polyp was removed using the cautery snare and the saline lift. 3. There were numerous diverticula within the sigmoid colon. 4. No angiodysplasia or inflammation was seen. There were mild melanosis coli proximally. INDICATION: The patient is a 71-year-old referred for her 5-year interval colonoscopy, slightly beyond the follow up date. She has a strong family history of colon cancer and presents today for colonoscopy for screening. DESCRIPTION OF PROCEDURE: The patient was informed of the risks and benefits and agreed to proceed. She was placed in the left lateral decubitus position and administered IV sedation. When properly sedated a rectal exam was performed, which was normal. The lighted endoscope was passed into the rectum and advanced along the colon. We did have to reposition her to a supine position to facilitate passage of the scope through the sigmoid colon, which was quite tortuous. There were numerous diverticula presents as well. Eventually the cecum was able to be seen and intubated, and the ileocecal valve and the appendiceal orifice were photographed. The scope was slowly brought back through the ascending, transverse, and descending colon. These 2 polyps were noted in the descending colon, which were flat and quite small, likely hyperplastic. These were removed easily with the biopsy forceps. The sigmoid colon was free of any polyps or neoplasia. Within the rectum this larger polyp was noted, photographed and removed using the saline-lift technique with cautery snare. Retroflexion revealed no other polyps in the rectum. The scope was removed completing the procedure. The patient tolerated the procedure without complications. Pathology is pending.
== END 2017-03-11 10:20 | disposition home or self-care (01) ==
LOC: ASC 07:40
PROVIDERS: ATTEND Surgery
DX: Z12.11 Encounter for screening for malignant neoplasm of colon (principal); D12.4 Benign neoplasm of descending colon; D12.8 Benign neoplasm of rectum; K57.30 Diverticulosis of large intestine without perforation or abscess without bleeding; K63.89 Other specified diseases of intestine; E07.9 Disorder of thyroid, unspecified; Z80.0 Family history of malignant neoplasm of digestive organs; Z86.718 Personal history of other venous thrombosis and embolism; Z86.12 Personal history of poliomyelitis; Z79.899 Other long term (current) drug therapy
CPT/HCPCS: 36415; 45380; 45385; 85027; 85652; 86140; 88305; J2250; J7120

== ENCOUNTER → 2017-03-16 | Outpatient (CLI) | payer MEDICARE ==
[~2017-03-16] MED LIST changes: -LACTATED RINGERS 1,000 ML IV SCH; -SODIUM CHLORIDE FLUSH 3 ML SYR IV PRN
--- NOTE | 2017-03-16 13:02 | Diagnostic Imaging Report ---
INDICATION: Acute bronchitis. Comparison with 02/05/2017. FINDINGS: There is obstructive lung disease with flattening of the diaphragms. There are no acute infiltrates. There are no masses. The heart is not enlarged. No hilar adenopathy. No pulmonary edema. No pneumothorax or pleural effusion. IMPRESSION: Obstructive lung disease with no acute infiltrates or masses developing. Dictated by: Dictated on workstation # [id number]
--- NOTE | 2017-03-17 08:56 | Diagnostic Imaging Report ---
INDICATION: Screening mammogram COMPARISON. 05/10/2013 through 03/20/2016 The current study was also evaluated with a Computer Aided Detection (CAD) system. FINDINGS: CC and MLO views of the breasts were obtained. The breast tissue is heterogeneously dense, which may lower the sensitivity of mammography. Previously described asymmetric density seen in the outer half of the right breast on the prior exam persists, but is decreased in size. There is no dominant mass, suspicious cluster of microcalcifications or other evidence to indicate malignancy. There has been no significant change from prior mammograms. IMPRESSION: Stable mammogram without evidence of malignancy. BI-RADS Category 1: Negative Result letter will be mailed to the patient. Follow-up: Yearly mammogram NOTE: Keep in mind that about 10% of breast cancers will not be identified on mammography. Further evaluation of a palpable mass not seen on mammography should be based on clinical grounds. Dictated by: Dictated on workstation # [id number]
== END ==
LOC: RAD 09:57
PROVIDERS: ATTEND Family Medicine
DX: Z12.31 Encounter for screening mammogram for malignant neoplasm of breast (principal); J20.2 Acute bronchitis due to streptococcus
CPT/HCPCS: 71020; G0202